=== PATIENT | female | born 1990 | race Caucasian/White ===

== ENCOUNTER 2016-09-06 17:04 | Outpatient (CLI) | payer OTHER ==
[~2016-09-06] VITALS: Ht 165.1 cm; Wt 129.5 kg
[2016-09-06] VITALS (8 sets, daily range): BP systolic 131–145; BP diastolic 65–90
[2016-09-06] MEDS ORDERED: PRENATAL TABLE1 EAC3 PO (17:48)
[2016-09-06] MEDS ORDERED: ZANTAC150 MG PO (17:48)
[2016-09-06] MEDS ORDERED: LEXAPRO10 MG PO (17:48)
[2016-09-06 18:11] LABS: ALKALINE PHOSPHATASE 144 IU/L (3-129); ANION GAP 12 MEQ/L (2-14); CHLORIDE 106 MEQ/L (99-109); GFR ESTIMATE (CALCULATED) > 59 mL/min/; GLUCOSE 76 mg/dL (70-99); POTASSIUM 4.1 MEQ/L (3.7-5.4); SAMPLE HEMOLYSIS CHECK 0; SAMPLE ICTERIC CHECK 0; SAMPLE LIPEMIA CHECK 0; SODIUM 137 MEQ/L (136-147); TOTAL BILIRUBIN 0.4 MG/DL (0.0-1.0); UREA NITROGEN (BUN) 10 mg/dL (9-23)
[2016-09-06 18:18] LABS: POINT-OF-CARE METER ID UU14188576
[2016-09-06 18:28] LABS: UR CREATININE CONCENTRATION 50.6 MG/DL
[2016-09-06 18:43] LABS: EOSINOPHIL (%) 0.3 % (0-5); HEMATOCRIT 35.3 % (36.0-46.0); IMMATURE GRANULOCYTE (%) 0.4 % (0.0-0.7); INSTRUMENT ABS NEUTROPHIL CT 6.9 K/uL; LYMPHOCYTE COUNT 2.5 K/uL (1.0-2.8); MCH 29.6 PG (29.0-34.0); MCHC 33.7 G/DL (30.0-36.0); MCV 87.8 FL (83-99); MEAN PLAT.VOLUME 10.9 uM^3 (9.5-12.4); MONOCYTE (%) 5.4 % (3-12); MONOCYTE COUNT 0.5 K/uL (0-0.8); NEUTROPHIL COUNT 6.9 K/uL (1.8-6.4); PLATELET COUNT 168 K/uL (156-360); RBC DIS.WIDTH-CV 13.3 % (11.8-14.6); RBC DIS.WIDTH-SD 42.3 % (39-53); RED BLOOD COUNT 4.02 M/uL (3.80-5.20)
== END 2016-09-06 19:25 | disposition home or self-care (01) ==
LOC: LDRP-OP 17:04 → 2WEST 17:06 → LDRP-OP 11-01 16:17
PROVIDERS: Midwife; Obstetrics & Gynecology
DX: O13.3 Gestational [pregnancy-induced] hypertension without significant proteinuria, third trimester (principal); O24.414 Gestational diabetes mellitus in pregnancy, insulin controlled; Z3A.36 36 weeks gestation of pregnancy; O99.213 Obesity complicating pregnancy, third trimester; E66.01 Morbid (severe) obesity due to excess calories
CPT/HCPCS: 59025; 80053; 82570; 82948; 84156; 85025; G0378

== ENCOUNTER 2016-09-17 16:59 | Inpatient (IN) | payer OTHER ==
[2016-09-17] VITALS (7 sets, daily range): BP systolic 122–176; BP diastolic 74–100
[~2016-09-17] VITALS: Ht 165.1 cm; Wt 134.0 kg
[~2016-09-17 16:59] MED LIST: LEXAPRO10 MG PO; PRENATAL TABLE1 EAC3 PO; ZANTAC150 MG PO
[2016-09-17 18:23] LABS: EOSINOPHIL (%) 0.4 % (0-5); HEMATOCRIT 34.2 % (36.0-46.0); IMMATURE GRANULOCYTE (%) 0.7 % (0.0-0.7); IMMATURE GRANULOCYTE COUNT 0.1 K/uL; INSTRUMENT ABS NEUTROPHIL CT 7.2 K/uL; LYMPHOCYTE COUNT 2.7 K/uL (1.0-2.8); MCHC 33.6 G/DL (30.0-36.0); MCV 89.3 FL (83-99); MEAN PLAT.VOLUME 10.9 uM^3 (9.5-12.4); MONOCYTE (%) 5.5 % (3-12); MONOCYTE COUNT 0.6 K/uL (0-0.8); NEUTROPHIL (%) 68.2 % (45-76); NEUTROPHIL COUNT 7.2 K/uL (1.8-6.4); PLATELET COUNT 162 K/uL (156-360); RBC DIS.WIDTH-CV 13.7 % (11.8-14.6); RBC DIS.WIDTH-SD 44.1 % (39-53); RED BLOOD COUNT 3.83 M/uL (3.80-5.20); WHITE BLOOD COUNT 10.6 K/uL (4.1-10.2)
[2016-09-17 18:32] LABS: CHLORIDE 107 mEq/L (99-109); POTASSIUM 4.2 mEq/L (3.7-5.4); SODIUM 138 mEq/L (136-147)
[2016-09-17 18:34] LABS: GLUCOSE 74 mg/dL (70-99)
[2016-09-17 18:35] LABS: ANION GAP 10 MEQ/L (2-14)
[2016-09-17 18:36] LABS: TOTAL BILIRUBIN 0.3 mg/dL (0.0-1.0)
[2016-09-17 18:38] LABS: ALKALINE PHOSPHATASE 141 IU/L (3-129); GFR ESTIMATE (CALCULATED) > 59 mL/min/
[2016-09-17 18:39] LABS: UREA NITROGEN (BUN) 13 mg/dL (9-23)
[2016-09-17 19:32] LABS: UR CREATININE CONCENTRATION 163.2 MG/DL
[2016-09-18] VITALS (41 sets, daily range): BP systolic 75–180; BP diastolic 46–115
[2016-09-18 05:49] LABS: POINT-OF-CARE METER ID UU13113692
[2016-09-18 05:49] LABS: POINT-OF-CARE METER ID UU13113692
[2016-09-18 09:59] LABS: POINT-OF-CARE METER ID UU13113801; POINT-OF-CARE USER ID PUTRLG40
[2016-09-18 13:46] LABS: POINT-OF-CARE METER ID UU13113801; POINT-OF-CARE USER ID PUTRLG40
[2016-09-18 17:50] LABS: POINT-OF-CARE METER ID UU13113801; POINT-OF-CARE USER ID PUTRLG40
[2016-09-18 21:45] LABS: POINT-OF-CARE METER ID UU13113801
[2016-09-19] VITALS (17 sets, daily range): BP systolic 124–158; BP diastolic 73–108
[2016-09-19 01:46] LABS: POINT-OF-CARE METER ID UU13113801
[2016-09-19 05:42] LABS: POINT-OF-CARE METER ID UU13113801
[2016-09-19 08:07] LABS: POINT-OF-CARE METER ID UU13113801; POINT-OF-CARE USER ID PUTRLG40
[2016-09-19] MEDS ORDERED: MOTRIN800 MG PO (08:10)
[2016-09-20 03:00] VITALS: BP 130/75
[2016-09-20 07:15] VITALS: BP 154/91
[2016-09-20 07:30] LABS: EOSINOPHIL (%) 0.7 % (0-5); EOSINOPHIL COUNT 0.1 K/uL (0-0.3); HEMATOCRIT 31.2 % (36.0-46.0); IMMATURE GRANULOCYTE (%) 0.8 % (0.0-0.7); IMMATURE GRANULOCYTE COUNT 0.1 K/uL; INSTRUMENT ABS NEUTROPHIL CT 6.7 K/uL; LYMPHOCYTE COUNT 3.3 K/uL (1.0-2.8); MCH 29.9 PG (29.0-34.0); MCHC 32.7 G/DL (30.0-36.0); MCV 91.5 FL (83-99); MEAN PLAT.VOLUME 11.2 uM^3 (9.5-12.4); MONOCYTE (%) 5.8 % (3-12); MONOCYTE COUNT 0.6 K/uL (0-0.8); NEUTROPHIL (%) 61.9 % (45-76); NEUTROPHIL COUNT 6.7 K/uL (1.8-6.4); PLATELET COUNT 149 K/uL (156-360); RBC DIS.WIDTH-CV 14.2 % (11.8-14.6); RBC DIS.WIDTH-SD 46.6 % (39-53); RED BLOOD COUNT 3.41 M/uL (3.80-5.20); WHITE BLOOD COUNT 10.8 K/uL (4.1-10.2)
[2016-09-20 11:30] VITALS: BP 139/82
[2016-09-20 18:24] VITALS: BP 140/77
[2016-09-20 23:30] VITALS: BP 149/76
[2016-09-21 03:15] VITALS: BP 133/71
[2016-09-21 08:50] VITALS: BP 142/84
[2016-09-21 12:30] VITALS: BP 142/87
== END 2016-09-21 16:00 | disposition home or self-care (01) | DRG 775 ==
LOC: LDRP-OP 16:59 → 2WEST 17:01 → LDRP-OP 11-01 21:16
PROVIDERS: Midwife; Obstetrics & Gynecology
PROC: 3E0P7GC Introduction of Other Therapeutic Substance into Female Reproductive, Via Natural or Artificial Opening (ICD-10-PCS; principal; 2016-09-17)
PROC: 0HQ9XZZ Repair Perineum Skin, External Approach (ICD-10-PCS; 2016-09-19)
PROC: 10E0XZZ Delivery of Products of Conception, External Approach (ICD-10-PCS; 2016-09-19)
PROC: 00HU33Z Insertion of Infusion Device into Spinal Canal, Percutaneous Approach (ICD-10-PCS; 2016-09-19)
PROC: 3E0R3CZ (ICD-10-PCS; 2016-09-19)
DX: O24.424 Gestational diabetes mellitus in childbirth, insulin controlled (principal); O13.4 Gestational [pregnancy-induced] hypertension without significant proteinuria, complicating childbirth; Z68.41 Body mass index [BMI] 40.0-44.9, adult; E66.01 Morbid (severe) obesity due to excess calories; O63.9 Long labor, unspecified; O70.0 First degree perineal laceration during delivery; O99.344 Other mental disorders complicating childbirth; O99.820 Streptococcus B carrier state complicating pregnancy; F41.9 Anxiety disorder, unspecified; O99.214 Obesity complicating childbirth; O14.94 Unspecified pre-eclampsia, complicating childbirth; Z37.0 Single live birth; Z3A.36 36 weeks gestation of pregnancy
CPT/HCPCS: 80053; 82570; 82948; 84156; 85025; C1755; G0378; J2540; J3010; J7120

== ENCOUNTER 2016-09-23 21:16 | Observation (INO) | payer OTHER ==
[~2016-09-23] VITALS: Ht 165.1 cm; Wt 125.7 kg
[~2016-09-23 21:16] MED LIST changes: +MOTRIN800 MG PO
[2016-09-23 22:36] LABS: EOSINOPHIL (%) 1.3 % (0-5); EOSINOPHIL COUNT 0.2 K/uL (0-0.3); HEMATOCRIT 28.6 % (36.0-46.0); IMMATURE GRANULOCYTE (%) 0.8 % (0.0-0.7); IMMATURE GRANULOCYTE COUNT 0.1 K/uL; INSTRUMENT ABS NEUTROPHIL CT 9.2 K/uL; LYMPHOCYTE COUNT 2.3 K/uL (1.0-2.8); MCH 30.4 PG (29.0-34.0); MCHC 33.2 G/DL (30.0-36.0); MCV 91.7 FL (83-99); MEAN PLAT.VOLUME 9.9 uM^3 (9.5-12.4); MONOCYTE (%) 4.9 % (3-12); MONOCYTE COUNT 0.6 K/uL (0-0.8); NEUTROPHIL (%) 74.1 % (45-76); NEUTROPHIL COUNT 9.2 K/uL (1.8-6.4); RBC DIS.WIDTH-CV 14.2 % (11.8-14.6); RBC DIS.WIDTH-SD 46.8 % (39-53); RED BLOOD COUNT 3.12 M/uL (3.80-5.20); WHITE BLOOD COUNT 12.5 K/uL (4.1-10.2)
[2016-09-23 22:37] LABS: PLATELET COUNT 199 K/uL (156-360)
[2016-09-23 22:38] LABS: CHLORIDE 112 mEq/L (99-109); SODIUM 142 mEq/L (136-147)
[2016-09-23 22:40] LABS: GLUCOSE 101 mg/dL (70-99)
[2016-09-23 22:41] LABS: ANION GAP 9 MEQ/L (2-14)
[2016-09-23 22:44] LABS: GFR ESTIMATE (CALCULATED) > 59 mL/min/; UREA NITROGEN (BUN) 13 mg/dL (9-23)
[2016-09-23 22:48] LABS: TROP-I INTERPRETATION NEGATIVE; TROPONIN-I 0.04 ng/mL (0.0-0.30)
[2016-09-24] VITALS (19 sets, daily range): BP systolic 134–163; BP diastolic 67–98
[2016-09-24 03:49] LABS: MAGNESIUM 1.9 mg/dL (1.3-2.7)
[2016-09-24] MEDS ORDERED: CORTISPORI200 DROPS/ LEFT EAR (04:25)
[2016-09-24 09:33] LABS: ANION GAP 12 MEQ/L (2-14); CHLORIDE 107 MEQ/L (99-109); GFR ESTIMATE (CALCULATED) > 59 mL/min/; GLUCOSE 141 mg/dL (70-99); POTASSIUM 3.7 MEQ/L (3.7-5.4); SAMPLE HEMOLYSIS CHECK 0; SAMPLE ICTERIC CHECK 0; SAMPLE LIPEMIA CHECK 0; SODIUM 141 MEQ/L (136-147); UREA NITROGEN (BUN) 11 mg/dL (9-23)
[2016-09-25] VITALS (18 sets, daily range): BP systolic 130–168; BP diastolic 73–96
[2016-09-25 06:52] LABS: MCH 29.6 PG (29.0-34.0); MCHC 32.5 G/DL (30.0-36.0); MCV 91.2 FL (83-99); MEAN PLAT.VOLUME 9.6 uM^3 (9.5-12.4); PLATELET COUNT 252 K/uL (156-360); RBC DIS.WIDTH-CV 13.7 % (11.8-14.6); RED BLOOD COUNT 3.51 M/uL (3.80-5.20); WHITE BLOOD COUNT 10.2 K/uL (4.1-10.2)
[2016-09-25 07:30] LABS: ANION GAP 12 MEQ/L (2-14); CHLORIDE 104 MEQ/L (99-109); GFR ESTIMATE (CALCULATED) > 59 mL/min/; POTASSIUM 3.8 MEQ/L (3.7-5.4); SAMPLE HEMOLYSIS CHECK 0; SAMPLE ICTERIC CHECK 0; SAMPLE LIPEMIA CHECK 0; SODIUM 138 MEQ/L (136-147); UREA NITROGEN (BUN) 11 mg/dL (9-23)
[2016-09-25 07:41] LABS: GLUCOSE 92 mg/dL (70-99)
[2016-09-25 07:42] LABS: MAGNESIUM 5.3 mg/dl (1.3-2.7)
[2016-09-25] MEDS ORDERED: ENALAPRIL MALEAT5 MG PO ×2 (16:46→16:56)
[2016-09-25] MEDS ORDERED: LOPRESSOR25 MG PO (16:47)
[2016-09-25] MEDS ORDERED: HYDROCHLOROTHIA25 MG PO (16:50)
== END 2016-09-25 17:35 | disposition home or self-care (01) ==
LOC: EME 21:16 → 2WEST 09-24 02:35 → EDOF 09-24 02:35 → 2WEST 09-24 02:35 → 2EASTP 09-24 03:55 → 2WEST 09-24 03:55 → 2EASTP 09-24 03:56 → 2WEST 09-24 12:49
PROVIDERS: Emergency Medicine; Physician Assistant Medical; Student in an Organized Health Care Education/Training Program
DX: O14.15 Severe pre-eclampsia, complicating the puerperium (principal); J81.0 Acute pulmonary edema; J90 Pleural effusion, not elsewhere classified; I27.2 Other secondary pulmonary hypertension; O24.439 Gestational diabetes mellitus in the puerperium, unspecified control; R06.02 Shortness of breath; R09.02 Hypoxemia; R00.0 Tachycardia, unspecified; F41.9 Anxiety disorder, unspecified; Z87.891 Personal history of nicotine dependence; E66.01 Morbid (severe) obesity due to excess calories; Z68.42 Body mass index [BMI] 45.0-49.9, adult; H60.92 Unspecified otitis externa, left ear; R01.1 Cardiac murmur, unspecified
CPT/HCPCS: 71020; 71275; 80048; 83735; 83880; 84484; 85025; 85027; 93005; 93306; 93970; 99281; 99285; G0378; J1650; J1940; J3475; J7120